=== PATIENT | female | born 1995 | race Asian ===

== ENCOUNTER 2023-12-23 11:44 | Emergency (ER) | payer MEDICAID ==
[~2023-12-23] VITALS: Ht 160 cm; Wt 59.4 kg
[2023-12-23] MEDS ORDERED: EPINEPHRINE (1:1000) 1 MG/ML AMPUL ONE (12:31)
[2023-12-23] MEDS ORDERED: methylPREDNISolone SOD SUCC 125 MG/2ML VIAL ONE (12:32)
[2023-12-23] MEDS ORDERED: diphenhydrAMINE HCL 50 MG/ML VIAL ONE (12:32)
[2023-12-23] MEDS: EPINEPHRINE (1:10,000) SYRINGE 1 MG/10 ML DISP.SYRIN IV ONE (12:35)
[2023-12-23] MEDS: diphenhydrAMINE HCL 50 MG/ML VIAL IV ONE (12:35)
[2023-12-23] MEDS: methylPREDNISolone SOD SUCC 125 MG/2ML VIAL IV ONE (12:35)
[2023-12-23] MEDS: ONDANSETRON HCL/PF 4 MG/2 ML VIAL IV ONE (13:01)
[2023-12-23] MEDS: IV NS 0.9% 1,000 ML BAG IV ONE (13:58)
[2023-12-23] MEDS: ALBUTEROL FS 2.5 MG/3 ML VIAL.NEB NEB ONE (14:52)
[2023-12-23] MEDS ORDERED: ALBUTEROL FS 2.5 MG/3 ML VIAL.NEB ONE (14:53)
[2023-12-23 14:56] VITALS: O2SAT 99
[2023-12-23 15:11] VITALS: O2SAT 96
[2023-12-23] MEDS ORDERED: EPIN0.3P3 IM (16:40)
[2023-12-23] MEDS ORDERED: DIPH25TA62 PO (16:40)
[2023-12-23 16:42] LABS: BASOPHILS % (AUTO) 0.1 % (0.0-2.0); CALCIUM, SERUM 8.1 mg/dL (8.5-10.1); CREATININE 0.7 mg/dL (0.6-1.3); EOSINOPHILS # (AUTO) 0.1 K/uL (0.0-0.7); EOSINOPHILS % (AUTO) 0.4 % (0.0-6.0); HEMATOCRIT 42 % (33-45); HEMOGLOBIN 13.9 g/dL (11.5-14.8); LYMPHOCYTES # (AUTO) 0.4 K/uL (0.8-4.8); LYMPHOCYTES % (AUTO) 2.9 % (20.0-44.0); MEAN CORPUSCULAR HEMOGLOBIN 32 PG (26.0-33.0); MEAN CORPUSCULAR HGB CONC 33 g/dl (31.0-36.0); MEAN CORPUSCULAR VOLUME 96 fL (82-100); MONOCYTES # (AUTO) 0.2 K/uL (0.1-1.30); MONOCYTES % (AUTO) 1.2 % (2.0-12.0); NEUTROPHILS # (AUTO) 13.6 K/uL (1.8-8.9); NEUTROPHILS % (AUTO) 95.4 % (43.0-81.0); PLATELET COUNT (AUTO) 169 K/uL (150-450); POTASSIUM 4.1 mmol/L (3.5-5.1); RED BLOOD CELL COUNT(AUTO) 4.41 MIL/uL (4.0-5.2); RED CELL DISTRIBUTION WIDTH 13.8 % (11.5-15.0); WHITE BLOOD COUNT (AUTO) 14.2 K/uL (4.3-11.0)
[2023-12-23 19:16] VITALS: BP 105/78; TEMP 98.6; O2SAT 98
== END 2023-12-23 19:00 | disposition left against medical advice (07) ==
LOC: ER 11:44
DX: L27.0 Generalized skin eruption due to drugs and medicaments taken internally (principal); R07.89 Other chest pain; R06.02 Shortness of breath; T37.8X5A Adverse effect of other specified systemic anti-infectives and antiparasitics, initial encounter; Y92.89 Other specified places as the place of occurrence of the external cause
CPT/HCPCS: 99285; 96374; 96361; 96375 ×2; 93005; 85025; 80048; 36415; 84484; 83880; 94640; J1200; J0171; J2919; A4223